=== PATIENT | female | born 1935 | race Caucasian/White ===

== ENCOUNTER 2018-05-17 19:35 | Emergency (ER) | payer MEDICARE ==
[~2018-05-17] VITALS: Ht 160 cm; Wt 96.8 kg
[2018-05-17 19:51] VITALS: Ht 160 cm; Wt 96.8 kg
[2018-05-17] MEDS ORDERED: ASPIRIN325 MG PO (19:51)
[2018-05-17] MEDS ORDERED: KLONOPIN1 MG PO (19:52)
[2018-05-17] MEDS ORDERED: OS-CAL500 MG PO (19:52)
[2018-05-17] MEDS ORDERED: CYMBALTA60 MG PO (19:52)
[2018-05-17] MEDS ORDERED: TOPROL XL50 MG (19:53)
[2018-05-17] MEDS ORDERED: COZAAR25 MG PO (19:53)
[2018-05-17] MEDS ORDERED: LANTUS (19:53)
[2018-05-17] MEDS ORDERED: SYNTHROID88 MCG PO (19:54)
[2018-05-17] MEDS ORDERED: PRAVACHOL20 MG PO (19:54)
[2018-05-17] MEDS ORDERED: TRILEPTAL150 MG (19:54)
[2018-05-17 20:43] LABS: BASOPHILS 0.5 % (0-2); EOSINOPHILS 3.7 % (0-7); HEMATOCRIT 40.7 % (36.0-48.0); IMMATURE GRANULOCYTES 0.2 % (0-5); MCHC 34.4 g/dL (31.0-37.0); MONOCYTES 12.7 % (2-11); NEUTROPHILS 46.9 % (40-80); PLATELET COUNT 396 10x3/uL (130-400); RBC 4.24 10x6/uL (4.00-5.40); RDW 12.7 % (11.5-14.5); WBC 11.4 10x3/uL (4.8-10.8)
[2018-05-17 20:44] LABS: ALBUMIN 2.9 g/dL (3.4-5.0); ALKALINE PHOSPHATASE 49 U/L (46-116); ALT (SGPT) 21 U/L (10-68); BILIRUBIN - TOTAL 0.18 mg/dL (0.2-1.3); CALC OSMOLALITY 273 mosm/kg (275-300); CALCIUM 8.7 mg/dL (8.5-10.1); CARBON DIOXIDE 29.1 mmol/L (21.0-32.0); CHLORIDE - SERUM 99 mmol/L (98-107); CREATININE - SERUM 0.9 mg/dL (0.6-1.3); GLUCOSE 118 mg/dL (74-106); POTASSIUM - SERUM 4.6 mmol/L (3.5-5.1); SODIUM 134 mmol/L (136-145); UREA NITROGEN 27 mg/dL (7-18); eGFR NON AFRICAN AMERICAN 63 mL/min (90-120)
[2018-05-17 20:55] LABS: CKMB 1.1 U/L (0.0-3.6); CREATINE KINASE 107 UL (21-215); MAGNESIUM - SERUM 1.6 mg/dL (1.8-2.4); TROPONIN-I < 0.017 ng/mL (0.000-0.060)
[2018-05-17 22:55] LABS: APPEARANCE HAZY (CLEAR); BILIRUBIN NEGATIVE (NEGATIVE); COLOR YELLOW (YELLOW); GLUCOSE NEGATIVE (NEGATIVE); KETONE NEGATIVE (NEGATIVE); NITRITE NEGATIVE (NEGATIVE); PROTEIN NEGATIVE (NEGATIVE); SPECIFIC GRAVITY 1.015 (1.005-1.020); UROBILINOGEN NORMAL (NORMAL)
[2018-05-17 22:56] LABS: BACTERIA FEW /hpf (NONE SEEN); EPITHELIAL CELLS RARE /hpf (0-5)
[2018-05-17] MEDS ORDERED: MACROBID100 MG PO (23:12)
[2018-05-17 23:23] VITALS: BP 144/76
== END 2018-05-17 23:23 | disposition home or self-care (01) ==
LOC: D.ER 19:35
PROVIDERS: Family Medicine
DX: N39.0 Urinary tract infection, site not specified (principal); M54.12 Radiculopathy, cervical region; Z86.73 Personal history of transient ischemic attack (TIA), and cerebral infarction without residual deficits

== ENCOUNTER → 2018-11-07 13:39 | Outpatient (CLI) | payer MEDICARE, OTHER ==
[2018-05-17 19:51] VITALS: BMI 37.8
[~2018-11-07 13:39] MED LIST: ASPIRIN325 MG PO; COZAAR25 MG PO; CYMBALTA60 MG PO; KLONOPIN1 MG PO; LANTUS; MACROBID100 MG PO; OS-CAL500 MG PO; PRAVACHOL20 MG PO; SYNTHROID88 MCG PO; TOPROL XL50 MG; TRILEPTAL150 MG
== END | disposition home or self-care (01) ==
LOC: D.RAD 13:30
PROVIDERS: ATTEND Internal Medicine Gastroenterology
DX: R09.89 Other specified symptoms and signs involving the circulatory and respiratory systems (principal); R07.9 Chest pain, unspecified